=== PATIENT | male | born 2000 | race Caucasian/White ===

== ENCOUNTER 2023-01-17 02:56 | Emergency (ER) | payer BC ==
[2023-01-17] MEDS ORDERED: diphenhydrAMINE HCL 25 MG CAPSULE (FP) PO ONE (02:58)
[2023-01-17] MEDS ORDERED: DEXAMETHASONE 4 MG TABLET (FP) PO ONE (02:58)
[2023-01-17 03:02] VITALS: BP 139/88; PULSE 66; RESP 16; TEMP 98.3; BMI 27.7
[2023-01-17] MEDS ORDERED: diphenhydrAMINE HCL 50 MG CAPSULE ONE (03:02)
[2023-01-17] MEDS ORDERED: DEXAMETHASONE 4 MG TABLET (FP) ONE ×2 (03:02→03:03)
== END 2023-01-17 03:14 | disposition home or self-care (01) ==
LOC: FER 02:56
DX: L23.7 Allergic contact dermatitis due to plants, except food (principal)
CPT/HCPCS: 99283-25